=== PATIENT | female | born 1970 | race Caucasian/White ===

== ENCOUNTER 2020-12-17 16:41 | Emergency (ER) | payer OTHER, SELFPAY ==
[2020-12-17 17:09] VITALS: BP 134/88; PULSE 75; RESP 18; TEMP 37.1; O2SAT 97; BMI 33.3
[2020-12-17 19:18] VITALS: BP 122/74; PULSE 68; RESP 17; TEMP 35.9; O2SAT 98
--- NOTE | 2020-12-17 19:19 | ED_ITS ---
HPI - Back Pain/Injury General Chief Complaint: Back Pain/Injury Stated Complaint: Back pain Time Seen by Provider: 12/17/20 19:07 Source: patient Mode of arrival: ambulatory Limitations: no limitations History of Present Illness HPI Narrative: 50-year-old female with no significant past medical history presents with 1 week of lower back pain. She stated that she was laying down when the pain started, and does not report any trauma, muscular strain, or repetitive muscular injury. She does not describe any symptoms indicating cauda equina, has not lost any sensation to lower extremities, and has full range of motion although uncomfortable. She denies fevers, chills, chest pain or pressure, palpitations, shortness breath, abdominal pain, dysuria, hematuria, and edema. Related Data Home Medications Medication Instructions Recorded Confirmed Ambien 12/17/20 12/17/20 bupropion HCl 12/17/20 citalopram 12/17/20 clonazepam 12/17/20 Previous Rx's Medication Instructions Recorded cyclobenzaprine 10 mg PO TID PRN #30 tab 12/17/20 Allergies Allergy/AdvReac Type Severity Reaction Status Date / Time ibuprofen Allergy Itching Verified 12/17/20 17:13 Review of Systems Review of Systems: Constitutional: No Fever, No Chills ENT/Mouth: No Ear Pain, No Hoarseness, No sore throat Eyes: No Eye Pain, No Swelling, No Redness, No Foreign Body Cardiovascular: No Chest Pain, No SOB Respiratory: No Cough, No Dyspnea Gastrointestinal: No Nausea, No Vomiting, No Diarrhea, No abdominal Pain Genitourinary: No Dysuria, No Hematuria Musculoskeletal: positive lumbar back pain, No Myalgias, No Joint Swelling Skin: No Skin lacerations, No rash Neuro: No Weakness, No Numbness, No Paresthesias, No Loss of Consciousness, No Dizziness, No Headache Psych: No Anxiety/Panic, No Depression Heme/Lymph: no easy bruising, no Lymphadenopathy Endocrine: No Polyuria, No Polydipsia Yes all other systems are reviewed and are negative [facility] Past Medical History Attestation statement: The following information was validated with the patient. Source: old records reviewed Medical History Anxiety Social History Social History Smoking Status: Current every day smoker Use of substances other than those prescribed or required for medical reasons: No Advance Directives: No Advance Directives Information Provided: Yes Physical Exam Vital Signs: Vital Signs: Last Vital Signs Temp 96.6 F L 12/17/20 19:18 Pulse 68 12/17/20 19:18 Resp 17 12/17/20 19:18 BP 122/74 12/17/20 19:18 Pulse Ox 98 12/17/20 19:18 Body Mass Index 33.3 Appearance: Alert. Oriented X3. No acute distress. Eyes: Pupils equal, round and reactive to light. ENT: Pharynx normal. Neck: Normal inspection. Neck supple. CVS: Normal heart rate and rhythm. Pulses normal. Respiratory: No respiratory distress. Breath sounds normal. Abdomen: Soft and nontender. Skin: Skin warm and dry. Normal skin color. Normal skin turgor. Extremities: No lower extremity edema. Neuro: No motor deficit. No sensory deficit. Course Course Course Narrative: 50-year-old female presents with 1 week of lower back pain. Does not report any injury, mechanical repetitive motions, indication of cauda equina. Plan of care is for x-rays. X-rays negative for acute findings requiring emergent intervention, shows degenerative disc disease. Plan of care is to follow up with Dr. Yates a primary care physician. Will give prescription for muscle relaxers. Patient verbalized understanding of and agrees plan of care discharge home. MDM - Back Pain/Injury Differential Diagnosis Differential diagnosis: Likely lumbar radiculopathy, sciatica, strain of lumbar region and thoracic back pain Medical Records Attestation: I reviewed the patient's medical records. Lab Data Attestation: I reviewed the patient's lab results. Labs: Lab Results 12/17/20 Range/Units 19:49 Urine Color YELLOW Urine Appearance HAZY Urine pH 6.0 (5.0-8.0) Ur Specific [place] >= 1.030 H (1.005-1.025) Urine Protein NEG (NEG-TRACE) MG/DL Urine Glucose (UA) NEG (NEG) MG/DL Urine Ketones NEG (NEG) MG/DL Urine Blood NEG (NEG) Urine Nitrite NEG (NEG) Ur Leukocyte Esterase NEG (NEG) Imaging Data Lumbar sacral x-ray: Attestation: I personally reviewed and interpreted this imaging study as follows: Radiologist's impression: EXAMINATION: Lumbar sacral spine and sacrum coccyx. 2 views of the lumbar sacral spine demonstrate no listhesis or compression injury. Vertebral heights are well-maintained as are disc heights. Mild loss of disc height at L4-L5. The SI joints are grossly patent. 3 views of the sacrum coccyx show no acute finding. No fracture. Again the SI joints are patent. XR/XR lumbar spine 2-3V IMPRESSION: No acute finding. Discharge Plan Discharge Clinical Impression: Degeneration, intervertebral disc, lumbar Thoracic back pain Qualifiers: Chronicity: acute Back pain laterality: midline Qualified Code(s): M54.6 - Pain in thoracic spine Patient Disposition: Home, Self-Care Instructions: Acute Low Back Pain (ED), Degenerative Disc Disease (ED) Additional Instructions: You were evaluated for lower back pain. X-rays are negative for acute findings requiring emergent intervention. You do have degenerative disc disease. Please follow-up with Dr. Yates. You may need physical therapy. Prescribed Flexeril, which is a muscle relaxer. This medication is not a narcotic but can delay reaction time, cause drowsiness an increased risk for falls. Do not drive or operate machinery while taking this medication. Thank you for choosing this emergency department for evaluation. Please follow-up with primary care physician as needed. Return to the emergency depar tment for any new, concerning, or worsening symptoms. Prescriptions: New cyclobenzaprine 10 mg tablet 10 mg PO TID PRN (Reason: muscle spasm) Qty: 30 RF: 0 No Action Ambien RF: 0 bupropion HCl RF: 0 citalopram RF: 0 clonazepam RF: 0 Referrals: Ric Yates MD [Physician] - 2 days (Lumbar disc degeneration) Interventions: ED Discharge Assessment Last Done: 12/17/20 20:28 Discharge Date/Time: 12/17/20 20:30
[2020-12-17 19:55] LABS: Glucose Urine UA NEG (NEG); Leukocyte Esterase Urine NEG (NEG); Nitrite Urine NEG (NEG); Specific Gravity - Urine >= 1.030 (1.005-1.025); Urine Blood NEG (NEG); Urine Ketones NEG (NEG); Urine Protein NEG (NEG-TRACE)
[2020-12-17 19:56] LABS: Appearance Urine HAZY; Color Urine YELLOW
== END 2020-12-17 20:30 | disposition home or self-care (01) ==
PROVIDERS: Nurse Practitioner Family; Emergency Provider Emergency Medicine
DX: M54.6 Pain in thoracic spine (principal); M51.36 Other intervertebral disc degeneration, lumbar region; F17.200 Nicotine dependence, unspecified, uncomplicated
CPT/HCPCS: 72100; 72220; 81003; 99283; 99284